=== PATIENT | male | born 1980 | race Caucasian/White ===

== ENCOUNTER 2017-10-05 07:57 | Emergency (ER) | payer BC ==
[2017-10-05] MEDS ORDERED: Ketorolac INJ* 60 MG/2 ML VIAL IM ONE (08:41)
--- NOTE | 2017-10-05 09:08 | RAD ---
INDICATION: Left knee pain and swelling. TECHNIQUE: 4 views of the left knee were obtained. FINDINGS: The bones are in normal alignment. 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 No acute fracture is seen. There is a large joint effusion present. There is mild osteoarthritic change in the patellofemoral compartment. IMPRESSION: LARGE JOINT EFFUSION.
[2017-10-05] MEDS ORDERED: Lidocaine 1% INJ* 10 MG/ML 30 ML SDV ONE (09:29)
[2017-10-05 09:36] LABS: ABS Basophils 0 10^3/ul (0-0.2); ABS Eosinophils 0.2 10^3/ul (0-0.6); ABS Lymphocytes 1.6 10^3/ul (1.0-4.8); ABS Monocytes 0.6 10^3/ul (0-0.8); ABS Neutrophils 4.7 10^3/ul (1.5-7.7); ABS Nucleated RBC 0 10^3/ul; Eosinophil % 2.4 % (0-6); Hematocrit 37 % (42-52); Hemoglobin 12.5 g/dl (14.0-18.0); Lymphocyte % 22.8 % (25-47); Mean Corpuscular HGB Conc 34 g/dl (31-36); Mean Corpuscular Hemoglobin 29 pg (27-31); Mean Corpuscular Volume 85 fL (80-94); Mean Platelet Volume 8.4 um3 (7.4-10.4); Nucleated Red Blood Cells % 0; Platelet Count 227 10^3/ul (150-450); Red Blood Count 4.34 10^6/ul (4.0-5.4); Red Cell Distribution Width 14 % (10.5-15); White Blood Count 7.2 10^3/ul (3.5-10.8)
--- NOTE | 2017-10-05 09:38 | RAD ---
INDICATION: Pain and swelling. COMPARISON: None TECHNIQUE: Duplex interrogation of the Lowerextremity was performed. FINDINGS: Deep veins: The common femoral, great saphenous, profunda femoris, proximal, mid, and distal deep femoral, popliteal, posterior tibial, and peroneal veins are patent. There is normal compressibility, augmentation, and phasic flow. Superficial veins: There are no findings of superficial thrombophlebitis. Popliteal fossa:There is no evidence of a popliteal cyst. Soft tissues:There are no soft tissue abnormalities. IMPRESSION: Normal examination. No evidence of deep venous thrombosis
[2017-10-05 09:48] LABS: INR 0.96 (0.77-1.02)
[2017-10-05 09:52] LABS: EGFR Non-African American 109.2 (>60)
[2017-10-05 14:49] VITALS: BP 139/80
--- NOTE | 2017-10-05 16:15 | ED ---
Gordo Cano Jennifer, scribed for Radha Theodore MD on 10/05/17 at 0846 . Lower Extremity - HPI Summary HPI Summary: The patient is a 37 year old male who presents with a swollen and sore left knee that began three days ago. The patient reports it started as tightness but progressed to being unable to bend his left knee and soreness the next day. He denies any recent trauma. The patient has a history of DVT and Gout and is concerned of a blood clot. He denies fever, chills, chest pain, and shortness of breath. - History of Current Complaint Chief Complaint: EDExtremityLower Stated Complaint: LT KNEE PAIN Time Seen by Provider: 10/05/17 08:17 Hx Obtained From: Patient Mechanism Of Injury: Unknown Onset/Duration: Still Present - Began 3 days ago but worsened 2 days ago Severity Initially: Moderate Severity Currently: Moderate Pain Intensity: 7 Pain Scale Used: 0-10 Numeric Timing: Constant Location: Is Discrete @ - left knee Character Of Pain: Stiffness - Began as "tightness" but progressed to "soreness " and unable to bend left knee Associated Signs And Symptoms: Positive: Swelling, Knee Pain Aggravating Factor(s): Nothing Alleviating Factor(s): Nothing Able to Bear Weight: Yes - Allergies/Home Medications Allergies/Adverse Reactions: Allergies Allergy/AdvReac Type Severity Reaction Status Date / Time No Known Allergies Allergy Verified 10/05/17 08:04 PMH/Surg Hx/FS Hx/Imm Hx Cardiovascular History: Reports: Hx Deep Vein Thrombosis Musculoskeletal History: Reports: Hx Gout - Immunization History Date of Tetanus Vaccine: Unk Date of Influenza Vaccine: None Infectious Disease History: No Infectious Disease History: Denies: Traveled Outside the [place] in Last 30 Days - Family History Known Family History: Negative: Renal Disease - Social History Alcohol Use: None Substance Use Type: Reports: None Smoking Status (MU): Never Smoked Tobacco Review of Systems Negative: Fever, Chills Negative: Chest Pain Negative: Shortness Of Breath Positive: Other - Left knee pain All Other Systems Reviewed And Are Negative: Yes Physical Exam - Summary Physical Exam Summary: GENERAL: ~Patient is a well developed and nourished M who is lying comfortable in the stretcher. ~Patient is not in any acute respiratory distress. HEAD AND FACE: Normocephalic EYES: PERRLA, EOMI x 2. EARS: Hearing grossly intact. MOUTH: Oropharynx within normal limits. NECK: Supple, trachea is midline, no adenopathy, no JVD, no carotid bruit. CHEST: Symmetric, no tenderness at palpation LUNGS: Clear to auscultation bilaterally. No wheezing or crackles. CVS: Regular rate and rhythm, S1 and S2 present, no murmurs or gallops appreciated. ABDOMEN: Soft, non-tender. Bowel sounds are normal. No abdominal abnormal pulsations. EXTREMITIES: Full ROM in all major joints, including left knee, no edema, no cyanosis or clubbing. There is some swelling of the left knee but no redness or warmth. NEURO: Alert and oriented x 3. No acute neurological deficits. Speech is normal and follows commands. SKIN: Dry and warm Triage Information Reviewed: Yes Vital Signs On Initial Exam: Initial Vitals Temp Pulse Resp BP Pulse Ox 97.7 F 83 12 129/82 96 10/05/17 08:06 10/05/17 08:06 10/05/17 08:06 10/05/17 08:06 10/05/17 08:06 Vital Signs Reviewed: Yes Procedures - Procedure Summary Procedure Summary: Arthrocentesis performed of the left knee. 90 mL of fluid was collected from the left knee and sent to the lab for analysis. Consent was obtained and time out was done. 18 Gauge spinal needle was used to aspirate synovial fluid form the left knee after cleaning with betadine, numbing with lidocaine and draping. Diagnostics - Vital Signs Vital Signs Temp Pulse Resp BP Pulse Ox 10/05/17 08:06 97.7 F 83 12 129/82 96 - Laboratory Lab Results: Lab Results 10/05/17 10/05/17 10/05/17 Range/Units 09:26 09:26 09:26 WBC 7.2 (3.5-10.8) 10^3/ul RBC 4.34 (4.0-5.4) 10^6/ul Hgb 12.5 L (14.0-18.0) g/dl Hct 37 L (42-52) % MCV 85 (80-94) fL MCH 29 (27-31) pg MCHC 34 (31-36) g/dl RDW 14 (10.5-15) % Plt Count 227 (150-450) 10^3/ul MPV 8.4 (7.4-10.4) um3 Neut % (Auto) 65.8 (38-83) % Lymph % (Auto) 22.8 L (25-47) % Stanton % (Auto) 8.3 H (0-7) % Eos % (Auto) 2.4 (0-6) % Baso % (Auto) 0.7 (0-2) % Absolute Neuts (auto) 4.7 (1.5-7.7) 10^3/ul Absolute Lymphs (auto) 1.6 (1.0-4.8) 10^3/ul Absolute Monos (auto) 0.6 (0-0.8) 10^3/ul Absolute Eos (auto) 0.2 (0-0.6) 10^3/ul Absolute Basos (auto) 0 (0-0.2) 10^3/ul Absolute Nucleated RBC 0 10^3/ul Nucleated RBC % 0 ESR 23 H (0-14) mm/Hr INR (Anticoag Therapy) 0.96 (0.77-1.02) APTT 31.5 (26.0-36.3) seconds Sodium 139 (139-145) mmol/L Potassium 4.0 (3.5-5.0) mmol/L Chloride 106 (101-111) mmol/L Carbon Dioxide 28 (22-32) mmol/L Anion Gap 5 (2-11) mmol/L BUN 17 (6-24) mg/dL Creatinine 0.79 (0.67-1.17) mg/dL Est GFR ( Amer) 140.4 (>60) Est GFR (Non-Af Amer) 109.2 (>60) BUN/Creatinine Ratio 21.5 H (8-20) Glucose 130 H (70-100) mg/dL Calcium 9.3 (8.6-10.3) mg/dL Total Bilirubin 0.40 (0.2-1.0) mg/dL AST 24 (13-39) U/L ALT 23 (7-52) U/L Alkaline Phosphatase 72 (34-104) U/L C-React Prot High Sens 20.03 mg/L Total Protein 6.9 (6.4-8.9) g/dL Albumin 4.1 (3.2-5.2) g/dL Globulin 2.8 (2-4) g/dL Albumin/Globulin Ratio 1.5 (1-3) Fluid Source Fluid Volume mL Fluid Color Fluid Appearance Fluid WBC (0 - 023543) /mcL Fluid RBC /mcL Fluid Tot Cell Count Fluid Neutrophils % Fluid Lymphocytes % Fluid Monocytes % Fluid Cell Count Rvw By Fluid Crystals (None Seen) 10/05/17 10/05/17 Range/Units 10:16 10:16 WBC (3.5-10.8) 10^3/ul RBC (4.0-5.4) 10^6/ul Hgb (14.0-18.0) g/dl Hct (42-52) % MCV (80-94) fL MCH (27-31) pg MCHC (31-36) g/dl RDW (10.5-15) % Plt Count (150-450) 10^3/ul MPV (7.4-10.4) um3 Neut % (Auto) (38-83) % Lymph % (Auto) (25-47) % Stanton % (Auto) (0-7) % Eos % (Auto) (0-6) % Baso % (Auto) (0-2) % Absolute Neuts (auto) (1.5-7.7) 10^3/ul Absolute Lymphs (auto) (1.0-4.8) 10^3/ul Absolute Monos (auto) (0-0.8) 10^3/ul Absolute Eos (auto) (0-0.6) 10^3/ul Absolute Basos (auto) (0-0.2) 10^3/ul Absolute Nucleated RBC 10^3/ul Nucleated RBC % ESR (0-14) mm/Hr INR (Anticoag Therapy) (0.77-1.02) APTT (26.0-36.3) seconds Sodium (139-145) mmol/L Potassium (3.5-5.0) mmol/L Chloride (101-111) mmol/L Carbon Dioxide (22-32) mmol/L Anion Gap (2-11) mmol/L BUN (6-24) mg/dL Creatinine (0.67-1.17) mg/dL Est GFR ( Amer) (>60) Est GFR (Non-Af Amer) (>60) BUN/Creatinine Ratio (8-20) Glucose (70-100) mg/dL Calcium (8.6-10.3) mg/dL Total Bilirubin (0.2-1.0) mg/dL AST (13-39) U/L ALT (7-52) U/L Alkaline Phosphatase (34-104) U/L C-React Prot High Sens mg/L Total Protein (6.4-8.9) g/dL Albumin (3.2-5.2) g/dL Globulin (2-4) g/dL Albumin/Globulin Ratio (1-3) Fluid Source Synovial fluid Fluid Volume 8 mL Fluid Color Yellow Fluid Appearance Cloudy Fluid WBC 83440 (0 - 439069) /mcL Fluid RBC 400 /mcL Fluid Tot Cell Count 100 Fluid Neutrophils 93 % Fluid Lymphocytes 2 % Fluid Monocytes 5 % Fluid Cell Count Rvw By Pending Fluid Crystals None seen (None Seen) Result Diagrams: 10/05/17 09:26 10/05/17 09:26 Lab Statement: Any lab studies that have been ordered have been reviewed, and results considered in the medical decision making process. - Radiology Knee xr Xray Interpretation: Positive (See Comments) - LARGE JOINT EFFUSION. Dr. Theodore has reviewed this report. Radiology Interpretation Completed By: Radiologist - Additional Comments Diagnostic Additional Comments: Venous Doppler Study. Interpreted by a radiologist. IMPRESSION: Normal examination. No evidence of deep venous thrombosis. Dr. Theodore has reviewed this report. Lower Extremity Course/Dx - Course Course Of Treatment: The patient is a 37 year old male who presents with a swollen and sore left knee that began three days ago. In the ED course the patient was given Toradol. Knee XR showed LARGE JOINT EFFUSION. Venous Doppler Study was obtained and was negative for DVT. I performed an arthrocentesis and fluid was sent to the lab for analysis. Cell count shhowed 16K WBC with 90% PMN , gram stain negative, no crystals seen. I discussed the case with Dr. Cain of Ortho who agrees that this findings suggests inflammtory as oppose to septic arthritis. Patient's knee pain is much improved after fluid removal. Dr. Cain recommended follow up with his in the office. Patient is well- appearing and is not septic or toxic appearing and so will be discharge home with follow up with Dr. Cain. All results discussed with patient in great detains. The patient is instructed to follow up with Dr. Newman, orthopedics, tomorrow morning. Strict return precautions given. He verbalized understanding and agrees with the plan. - Diagnoses Provider Diagnoses: Joint effusion - Physician Notifications Discussed Care Of Patient With: Onofre Newman Time Discussed With Above Provider: 14:33 Instructed by Provider To: Other - I discussed the patient with Dr. Newman, orthopedics, who agrees it is most likely inflammatory. Dr. Newman will see the patient in his office tomorrow morning. Discharge - Sign-Out/Discharge Documenting (check all that apply): Discharge/Admit/Transfer - Discharge Plan Condition: Stable Disposition: HOME Prescriptions: Ketorolac TAB * [Toradol TAB *] 10 mg PO Q6H #20 tab Patient Education Materials: Rheumatoid Arthritis (ED), Swollen Knee Joint (ED) , Septic Arthritis (DC) Referrals: Onofre Newman MD [Medical Doctor] - Additional Instructions: Follow up with Dr. Newman, orthopedics, tomorrow morning, 10/06/17. Return to the emergency department for any new or worsening symptoms. - Billing Disposition and Condition Condition: STABLE Disposition: HOME The documentation as recorded by the Gordo simpson Jennifer accurately reflects the service I personally performed and the decisions made by , Radha Theodore MD.
== END 2017-10-05 14:48 | disposition home or self-care (01) ==
LOC: ED 07:57
DX: M25.462 Effusion, left knee (principal); M25.562 Pain in left knee
CPT/HCPCS: 36415; 80053; 82945; 83615; 84157; 85025; 85610; 85652; 85730; 86141; 86618; 87070; 87205; 87640; 87641; 89051; 89060; 96372; 99282; J1885